=== PATIENT | female | born 1965 | race Caucasian/White ===

== ENCOUNTER → 2018-06-16 09:17 | Outpatient (CLI) | payer OTHER, SELFPAY | DX: Z23 Encounter for immunization (principal) | CPT/HCPCS: 90471; 90686 ==

== ENCOUNTER 2019-05-05 20:34 | Emergency (ER) | payer OTHER, SELFPAY ==
[2019-05-05] MEDS: SODIUM CHLORIDE 0.9% 1,000 ML 1000 ML IV (20:44)
[2019-05-05] MEDS: ONDANSETRON 4 MG/2 ML INJ IV ×2 (20:44→21:40)
[2019-05-05] MEDS: MORPHINE 4 MG/ML INJ IV (20:44)
[2019-05-05 20:45] LABS: Add Manual Diff / Slide Review NO; Basophils Absolute Auto 100 /uL (0-100); Eosinophils Absolute Auto 400 /uL (0-450); Eosinophils Percent Auto 3.4 % (2-4); Hematocrit 44.7 % (36-46); Hemoglobin 14.8 g/dL (12.0-16.0); Lymphocytes Absolute Auto 3000 /uL (1100-4500); Lymphocytes Percent Auto 26.3 % (25-40); Mean Corpuscular HGB Conc 33.1 % (30-36); Mean Corpuscular Volume 87.6 fL (80-100); Monocytes Absolute Auto 700 /uL (0-900); Monocytes Percent Auto 6.5 % (3-14); Neutrophils Absolute Auto 7100 /uL (1500-7000); Neutrophils Percent Auto 62.8 % (50-75); Platelet Count 293 X10^3/uL (150-400); Red Cell Distribution Width 14.2 % (11.6-14.8); White Blood Cell Count 11.3 X10^3/uL (4.5-11.0)
[2019-05-05] MEDS: KETOROLAC 60 MG/2 ML VIAL 30 MG IV (20:47)
[2019-05-05 20:49] VITALS: BP 224/94; PULSE 77; RESP 20; TEMP 37.7; O2SAT 96
[2019-05-05 20:56] LABS: Alanine Aminotransferase 61 IU/L (9-52); Albumin 4.6 g/dL (3.5-5.0); Albumin Globulin Ratio 1.4 (1.0-2.8); Alkaline Phosphatase 104 U/L (38-126); Aspartate Aminotransferase 35 IU/L (14-36); BUN Creatinine Ratio 23.3 (6-22); Bilirubin Total 0.8 mg/dL (0.2-1.3); Blood Urea Nitrogen 14 mg/dL (7-17); Calcium 9.5 mg/dL (8.4-10.2); Carbon Dioxide 30 mmol/L (22-32); Chloride 100 mmol/L (98-107); Estimated Glomerular Filt Rate > 60.0 mL/min (>60); Globulin 3.2 g/dL (1.7-4.1); Glucose 298 mg/dL (70-100); HEMOLYSIS < 15 (0-50); Potassium 3.8 mmol/L (3.4-5.1); Sodium 141 mmol/L (137-145); Total Protein 7.8 g/dL (6.3-8.2)
--- NOTE | 2019-05-05 20:57 | ED.GENADULT ---
HPI - General Adult General Chief complaint: Urogenital-Female Stated complaint: Kidney Stone Time Seen by Provider: 05/05/19 20:35 Source: patient Mode of arrival: Wheelchair Limitations: no limitations History of Present Illness HPI narrative: 53-year-old female here for evaluation of left sided abdominal pain. Patient states that her symptoms are consistent with prior episodes of kidney stones. States she has had multiple stones in the past. Some have required stent placement. Symptoms started earlier today. Has not tried anything for symptoms prior to arrival. States that her stones are calcium stones. Related Data Allergies Allergy/AdvReac Type Severity Reaction Status Date / Time latex Allergy Verified 05/05/19 20:49 Review of Systems Constitutional Constitutional: Denies fever(s) Cardiovascular Cardiovascular: Denies chest pain and Denies dyspnea Respiratory Respiratory: Denies dyspnea Gastrointestinal Gastrointestinal: Reports abdominal pain, Reports nausea and Reports vomiting Genitourinary Genitourinary: Reports difficulty voiding Musculoskeletal Musculoskeletal: Denies myalgias and Denies arthralgias Integumentary/Breasts Skin/Breast: Denies rash [facility] Medical History Kidney stones (Acute) Sarcoidosis (Acute) Social History marital status: lives independently: Yes Social History marital status: lives independently: Yes Exam Initial Vital Signs Initial Vital Signs: Vital Signs Temperature 99.8 F H 05/05/19 20:49 Pulse Rate 77 05/05/19 20:49 Respiratory Rate 20 05/05/19 20:49 Blood Pressure 224/94 H 05/05/19 20:49 Pulse Oximetry 96 05/05/19 20:49 Const General: cooperative and No comfortable (Uncomfortable) Orientation: alert and awake HENMT Head: normal to inspection and normocephalic Resp Effort & Inspection: normal respiratory effort Cardio Rate: regular rate Skin Lesions: no lesions Rashes: no rashes Neuro General: alert and awake Cognition: normal cognition Speech: speech normal Extrem General: normal to inspection Psych Appearance: grossly normal and well kempt Course Orders Ordered: ED Orders 05/05/19 20:30 Amylase Stat Complete Blood Count AUTO DIFF Stat Comprehensive Metabolic Panel Stat Lipase Stat 05/05/19 21:15 Urinalysis and Microscopic Stat Urine Culture Stat Discontinued Medications Sodium Chloride (Normal Saline 0.9%) 1,000 mls @ 1,000 mls/hr IV BOLUS ONE Stop: 05/05/19 21:35 Last Infusion: 05/05/19 21:55 Dose: 0 mls/hr Documented by: Admin: 05/05/19 20:44 Dose: 1,000 mls/hr Documented by: LUCÍA Lidocaine HCl 7.1 ml/ Sodium (Chloride) 57.1 mls @ 342.6 mls/hr IV NOW ONE Stop: 05/05/19 21:32 Last Infusion: 05/05/19 21:56 Dose: 0 mls/hr Documented by: Admin: 05/05/19 21:40 Dose: 342.6 mls/hr Documented by: LUCÍA Ketorolac Tromethamine (Toradol) 30 mg IV NOW ONE Stop: 05/05/19 20:37 Last Admin: 05/05/19 20:47 Dose: 30 mg Documented by: LUCÍA Ketorolac Tromethamine (Toradol) 30 mg IV NOW ONE Stop: 05/05/19 20:45 Last Admin: 05/05/19 20:56 Dose: Not Given Documented by: LUCÍA Morphine Sulfate (Morphine) 4 mg IV NOW ONE Stop: 05/05/19 20:37 Last Admin: 05/05/19 20:44 Dose: 4 mg Documented by: LUCÍA Ondansetron HCl (Zofran) 4 mg IV NOW ONE Stop: 05/05/19 20:37 Last Admin: 05/05/19 20:44 Dose: 4 mg Documented by: LUCÍA Ondansetron HCl (Zofran) 4 mg IV NOW ONE Stop: 05/05/19 21:37 Last Admin: 05/05/19 21:40 Dose: 4 mg Documented by: LUCÍA Oxycodone/Acetaminophen (Percocet 5/325) 1 tab PO NOW ONE Stop: 05/05/19 22:17 Last Admin: 05/05/19 22:24 Dose: 1 tab Documented by: LUCÍA Vital Signs Vital signs: Vital Signs - 8 hr 05/05/19 20:49 05/05/19 21:09 05/05/19 21:57 Temperature 99.8 F H Pulse Rate 77 71 76 Respiratory Rate 20 Blood Pressure 224/94 H Blood Pressure [Left Arm] 197/90 H Pulse Oximetry 96 97 95 05/05/19 22:51 Temperature Pulse Rate 81 Respiratory Rate 19 Blood Pressure Blood Pressure [Left Arm] 163/72 H Pulse Oximetry 98 Medical Decision Making Lab Data Lab results reviewed: Yes I reviewed the patient's lab results. Result diagrams: 05/05/19 20:30 05/05/19 20:30 Labs: Lab Results 05/05/19 05/05/19 05/05/19 Range/Units 20:30 20:30 20:30 WBC 11.3 H (4.5-11.0) X10^3/uL RBC 5.10 (4.0-5.2) X10^6/uL Hgb 14.8 (12.0-16.0) g/dL Hct 44.7 (36-46) % MCV 87.6 (80-100) fL MCH 29.0 (26-34) PG MCHC 33.1 (30-36) % RDW 14.2 (11.6-14.8) % Plt Count 293 (150-400) X10^3/uL Neut % (Auto) 62.8 (50-75) % Lymph % (Auto) 26.3 (25-40) % [place] % (Auto) 6.5 (3-14) % Eos % (Auto) 3.4 (2-4) % Baso % (Auto) 1.0 (0-2) % Neut # (Auto) 7100 H (3170-2221) /uL Lymph # (Auto) 3000 (7510-3476) /uL [place] # (Auto) 700 (0-900) /uL Eos # (Auto) 400 (0-450) /uL Baso # (Auto) 100 (0-100) /uL Sodium 141 (137-145) mmol/L Potassium 3.8 (3.4-5.1) mmol/L Chloride 100 (98-107) mmol/L Carbon Dioxide 30 (22-32) mmol/L BUN 14 (7-17) mg/dL Creatinine 0.60 (0.52-1.04) mg/dL Estimated GFR > 60.0 (>60) mL/min BUN/Creatinine Ratio 23.3 H (6-22) Glucose 298 H (70-100) mg/dL Calcium 9.5 (8.4-10.2) mg/dL Total Bilirubin 0.8 (0.2-1.3) mg/dL AST 35 (14-36) IU/L ALT 61 H (9-52) IU/L Alkaline Phosphatase 104 (38-126) U/L Total Protein 7.8 (6.3-8.2) g/dL Albumin 4.6 (3.5-5.0) g/dL Globulin 3.2 (1.7-4.1) g/dL Albumin/Globulin Ratio 1.4 (1.0-2.8) Amylase 63 (30-110) U/L Lipase 47 (23-300) U/L Urine Color Urine Appearance Urine pH (4.5-8.0) Ur Specific [place] (1.000-1.035) Urine Protein (Negative) Urine Glucose (UA) (Negative) g/dL Urine Ketones (NEGATIVE) Urine Occult Blood (Negative) Urine Nitrate (Negative) Urine Bilirubin (NEGATIVE) Urine Urobilinogen (0.2) E.U./dL Ur Leukocyte Esterase (NEGATIVE) Urine RBC (0-5/HPF) Urine WBC (0-5/HPF) Ur Squamous Epith Cells (0-5/HPF) Calcium Oxalate Crystal Urine Bacteria (None) Ur Culture Indicated? 05/05/19 Range/Units 21:15 WBC (4.5-11.0) X10^3/uL RBC (4.0-5.2) X10^6/uL Hgb (12.0-16.0) g/dL Hct (36-46) % MCV (80-100) fL MCH (26-34) PG MCHC (30-36) % RDW (11.6-14.8) % Plt Count (150-400) X10^3/uL Neut % (Auto) (50-75) % Lymph % (Auto) (25-40) % [place] % (Auto) (3-14) % Eos % (Auto) (2-4) % Baso % (Auto) (0-2) % Neut # (Auto) (7364-8340) /uL Lymph # (Auto) (3156-8769) /uL [place] # (Auto) (0-900) /uL Eos # (Auto) (0-450) /uL Baso # (Auto) (0-100) /uL Sodium (137-145) mmol/L Potassium (3.4-5.1) mmol/L Chloride (98-107) mmol/L Carbon Dioxide (22-32) mmol/L BUN (7-17) mg/dL Creatinine (0.52-1.04) mg/dL Estimated GFR (>60) mL/min BUN/Creatinine Ratio (6-22) Glucose (70-100) mg/dL Calcium (8.4-10.2) mg/dL Total Bilirubin (0.2-1.3) mg/dL AST (14-36) IU/L ALT (9-52) IU/L Alkaline Phosphatase (38-126) U/L Total Protein (6.3-8.2) g/dL Albumin (3.5-5.0) g/dL Globulin (1.7-4.1) g/dL Albumin/Globulin Ratio (1.0-2.8) Amylase (30-110) U/L Lipase (23-300) U/L Urine Color Dark yellow Urine Appearance Cloudy Urine pH 5.0 (4.5-8.0) Ur Specific [place] >=1.030 H (1.000-1.035) Urine Protein 2+ H (Negative) Urine Glucose (UA) 2+ H (Negative) g/dL Urine Ketones Trace H (NEGATIVE) Urine Occult Blood 3+ H (Negative) Urine Nitrate Negative (Negative) Urine Bilirubin Negative (NEGATIVE) Urine Urobilinogen 0.2 (0.2) E.U./dL Ur Leukocyte Esterase Trace H (NEGATIVE) Urine RBC 30-100/hpf H (0-5/HPF) Urine WBC 1-5/hpf (0-5/HPF) Ur Squamous Epith Cells 0-1 /hpf (0-5/HPF) Calcium Oxalate Crystal Occasional H Urine Bacteria Few (2-10) H (None) Ur Culture Indicated? Specimen cultured MDM Narrative Medical decision making narrative: Kidney functions unremarkable, urinalysis does not show any signs of infection. Her history and physical exam are consistent with a kidney stone. We did discuss the utility of a CT scan for location/size of the stone not necessarily for the diagnosis. We did discuss that this could be important given her prior need for stent placement. We also discussed the importance of trying to avoid CT scanning if necessary. We were able to get her pain under control with medications. After a discussion about CT scans we will hold on any CT scan for now. She has pain medication and nausea medication at home. She was given return precautions and follow-up instructions. She expressed understanding and agreement plan. Discharge Plan Departure Patient Disposition: Home Clinical Impression: Renal colic on left side Discharge Date/Time: 05/05/19 22:57 Instructions: DI for Kidney Stones Activity Restrictions/Additional Instructions: Take the pain medication and nausea medication as needed. If you develop new symptoms to include fevers, inability to tolerate oral intake, worsening pain, inability to urinate please return to the emergency department for further evaluation. Contact your primary provider for a follow-up. Referrals: Akbar Ryan MD [Primary Care Provider] -
[2019-05-05 21:05] LABS: Amylase 63 U/L (30-110); Lipase 47 U/L (23-300)
[2019-05-05 21:09] VITALS: BP 197/90; PULSE 71; O2SAT 97
[2019-05-05 21:30] LABS: Appearance Urine UA CLOUDY; Bilirubin Urine UA NEGATIVE (NEGATIVE); Glucose Urine UA 2+ g/dL (Negative); Ketones Urine UA TRACE (NEGATIVE); Leukocyte Esterase Urine UA TRACE (NEGATIVE); Nitrite Urine UA NEGATIVE (Negative); Occult Blood Urine UA 3+ (Negative); Protein Urine UA 2+ (Negative); Specific Gravity Urine UA >=1.030 (1.000-1.035); Urobilinogen Urine UA 0.2 E.U./dL (0.2)
[2019-05-05 21:31] LABS: Color Urine UA Dark Yellow
[2019-05-05 21:34] LABS: Calcium Oxalate Crystals Urine Occasional; RBC Urine 30-100/HPF (0-5/HPF); Squamous Epithelial Cell Urine 0-1 /HPF (0-5/HPF); WBC Urine 1-5/HPF (0-5/HPF)
[2019-05-05 21:35] LABS: Bacteria Urine Few (2-10); Culture Indicated Urine Specimen Cultured
[2019-05-05] MEDS: LIDOCAINE 2% 7.1 ML in SODIUM CHLORIDE 0.9% 50 ML 342.6 ML IV (21:40)
[2019-05-05 21:57] VITALS: PULSE 76; O2SAT 95
[2019-05-05] MEDS: OXYCODONE/ACETAMINOPHEN 5/325 TABLET 1 TAB PO (22:24)
[2019-05-05 22:51] VITALS: BP 163/72; PULSE 81; RESP 19; O2SAT 98
== END 2019-05-05 22:57 | disposition home or self-care (01) ==
PROVIDERS: Nurse Practitioner Family; Emergency Provider Emergency Medicine; PCP Family Medicine
DX: N23 Unspecified renal colic (principal); Z87.442 Personal history of urinary calculi
CPT/HCPCS: 36415; 80053; 81001; 82150; 83690; 85025; 87086; 96361; 96365; 96375; 96376; 99283; 99284; J1885; J2270; J2405

== ENCOUNTER → 2019-07-16 11:35 | Outpatient (CLI) | payer OTHER, SELFPAY | PROVIDERS: PCP Family Medicine | DX: Z23 Encounter for immunization (principal) | CPT/HCPCS: 90471; 90686 ==

== ENCOUNTER → 2020-07-07 | Outpatient (CLI) | payer OTHER, SELFPAY | PROVIDERS: PCP Family Medicine; Referring Provider Internal Medicine; Visit Provider Internal Medicine | DX: Z23 Encounter for immunization (principal) | CPT/HCPCS: 90471; 90686 ==

== ENCOUNTER → 2020-07-21 15:34 | Outpatient (CLI) | payer OTHER, SELFPAY ==
[2020-07-21 16:47] LABS: COVID19 -Nasal RAPID Negative (Negative)
== END ==
PROVIDERS: PCP Family Medicine; Visit Provider Nurse Practitioner
DX: M79.10 Myalgia, unspecified site (principal); R11.0 Nausea; Z20.828 Contact with and (suspected) exposure to other viral communicable diseases
CPT/HCPCS: 87635

== ENCOUNTER 2020-12-27 20:25 | Emergency (ER) | payer OTHER, SELFPAY ==
[2020-12-27 20:27] VITALS: BP 246/112; PULSE 80; RESP 17; TEMP 37.5; O2SAT 97; BMI 32.3
--- NOTE | 2020-12-27 20:49 | ED_ITS ---
HPI - Abdominal Pain General Chief Complaint: Urogenital-Female Stated Complaint: Thinks she has a kidney stone Time Seen by Provider: 12/27/20 20:46 Source: patient Mode of arrival: Ambulatory Limitations: no limitations History of Present Illness HPI narrative: Patient is a 55-year-old female history of diabetes, kidney stone and sarcoidosis presenting with sudden onset of right flank pain radiating around to her groin. It came on suddenly while at work this feels like prior kidney stones. She feels nauseous. She has previously required lithotripsy. No fever or chills. MD complaint: flank pain Onset (ago): hour(s) Pain Consistency: constant Location: R flank Quality: stabbing and sharp Relieving factors: nothing Exacerbating factors: nothing Related Data Allergies Allergy/AdvReac Type Severity Reaction Status Date / Time latex Allergy Verified 12/27/20 20:38 Review of Systems Review of Systems Narrative: GENERAL: Denies chills, fatigue, malaise, fever, sweats, travel HEENT: Denies sinus pain, ear pain, sore throat, difficulty swallowing, neck pain RESPIRATORY: Denies dyspnea, cough, wheezing, hemoptysis, sputum. CARDIOVASCULAR: Denies chest pain, palpitations, orthopnea, edema GASTROINTESTINAL: Denies nausea, vomiting, abdominal pain, diarrhea, constipation, melena. : See HPI MUSCULOSKELETAL: Denies weakness, joint pain, or bony pain SKIN: No rash, no erythema, no pruritus NEUROLOGIC: Denies weakness, dizziness, headache, numbness, change in speech, confusion PSYCHIATRIC: No concerning psychosocial issues. 12 point review of systems is negative except for those stated above and HPI Patient History Medical History Diabetes Kidney stones Sarcoidosis Social History marital status: lives independently: Yes Exam Initial Vital Signs Initial Vital Signs: Vital Signs Temperature 99.5 F 12/27/20 20:27 Pulse Rate 80 12/27/20 20:27 Respiratory Rate 17 12/27/20 20:27 Blood Pressure 246/112 H 12/27/20 20:27 Pulse Oximetry 97 12/27/20 20:27 GENERAL: Appears in pain and in no acute distress. HEENT: Head atraumatic,EOMI, pupils reactive, face symmetric, moist mucous membranes CARDIOVASCULAR: Regular rate and rhythm without murmurs, rubs or gallops. RESPIRATORY: Breath sounds equal bilaterally, no wheezes rales or rhonchi. ABDOMEN: Soft, nontender. Normoactive bowel sounds all 4 quadrants. No guarding or rebound. : Right CVA tenderness EXTREMITIES: Normal range of motion, no clubbing or edema. Neurovascularly intact NEUROLOGICAL: Alert and oriented x4.Normal gait and speech. SKIN: Warm, dry, no laceration, no petechiae, no rashes or lesions. Course Orders Ordered: ED Orders 12/27/20 20:30 Complete Blood Count AUTO DIFF Stat Comprehensive Metabolic Panel Stat Lipase Stat 12/27/20 21:02 CT kidney ureter bladder (KUB) Stat 12/28/20 00:06 EKG-12 Lead Stat 12/28/20 01:15 COVID19 -Nasal swab/Pre-Proc Stat Discontinued Medications Adenosine (Adenosine 6 Mg/2 Ml Vial) 6 mg IV NOW ONE Stop: 12/28/20 00:09 Last Admin: 12/28/20 01:14 Dose: Not Given Documented by: EJ Adenosine (Adenosine 6 Mg/2 Ml Vial) 12 mg IV NOW ONE Stop: 12/28/20 00:09 Last Admin: 12/28/20 01:14 Dose: Not Given Documented by: EJ Diltiazem HCl (Diltiazem 5 Mg/Ml Sdv) 10 mg IV NOW ONE Stop: 12/28/20 00:16 Last Admin: 12/28/20 00:18 Dose: 10 mg Documented by: PRISCILAAG Diltiazem HCl (Diltiazem 5 Mg/Ml Sdv) 10 mg IV NOW ONE Stop: 12/28/20 00:29 Last Admin: 12/28/20 00:31 Dose: 10 mg Documented by: EJ Hydromorphone HCl (Hydromorphone 0.5 Mg Inj) 0.5 mg IV NOW ONE Stop: 12/27/20 21:18 Last Admin: 12/27/20 21:30 Dose: 0.5 mg Documented by: PRISCILAAG Hydromorphone HCl (Hydromorphone 0.5 Mg Inj) 0.5 mg IV NOW ONE Stop: 12/27/20 21:46 Last Admin: 12/27/20 21:48 Dose: 0.5 mg Documented by: EJ Hydromorphone HCl (Hydromorphone 1 Mg Inj) 1 mg IV NOW ONE Stop: 12/27/20 23:28 Last Admin: 12/27/20 23:31 Dose: 1 mg Documented by: EJ Hydromorphone HCl (Hydromorphone 0.5 Mg Inj) 0.5 mg IV NOW ONE Stop: 12/28/20 01:21 Last Admin: 12/28/20 01:28 Dose: 0.5 mg Documented by: EJ Sodium Chloride (Normal Saline 0.9%) 1,000 mls @ 1,000 mls/hr IV BOLUS ONE Stop: 12/27/20 22:56 Last Infusion: 12/28/20 00:06 Dose: 0 mls/hr Documented by: Admin: 12/27/20 22:08 Dose: 1,000 mls/hr Documented by: EJ Lidocaine HCl 6.8 ml/ Sodium (Chloride) 56.8 mls @ 340.8 mls/hr IV NOW ONE Stop: 12/27/20 23:39 Last Infusion: 12/28/20 00:06 Dose: 0 mls/hr Documented by: Admin: 12/27/20 23:43 Dose: 340.8 mls/hr Documented by: EJ Diltiazem HCl 125 mg/ Sodium (Chloride) 125 mls @ 5 mls/hr IV TITRATE MODESTA; Protocol Last Titration: 12/28/20 03:28 Dose: 0 mg/hr, 0 mls/hr Documented by: Titration: 12/28/20 02:26 Dose: 0 mg/hr, 0 mls/hr Documented by: Titration: 12/28/20 01:56 Dose: 15 mg/hr, 15 mls/hr Documented by: Titration: 12/28/20 01:28 Dose: 10 mg/hr, 10 mls/hr Documented by: Admin: 12/28/20 01:02 Dose: 5 mg/hr, 5 mls/hr Documented by: EJ Diltiazem HCl 125 mg/ Sodium (Chloride) 125 mls @ 5 mls/hr IV TITRATE MODESTA; Protocol Last Admin: 12/28/20 01:15 Dose: Not Given Documented by: EJ Ketorolac Tromethamine (Ketorolac 30 Mg/Ml Vial) 30 mg IV NOW ONE Stop: 12/27/20 20:47 Last Admin: 12/27/20 20:54 Dose: 30 mg Documented by: EJ Metoprolol Tartrate (Metoprolol Tartrate 5 Mg/5 Ml Inj) 5 mg IV NOW ONE Stop: 12/28/20 02:40 Last Admin: 12/28/20 02:42 Dose: 5 mg Documented by: EJ Ondansetron HCl (Ondansetron 4 Mg/2 Ml Inj) 4 mg IV NOW ONE Stop: 12/27/20 20:47 Last Admin: 12/27/20 20:54 Dose: 4 mg Documented by: EJ Ondansetron HCl (Ondansetron 4 Mg/2 Ml Inj) 4 mg IV NOW ONE Stop: 12/27/20 21:27 Last Admin: 12/27/20 21:30 Dose: 4 mg Documented by: EJ Vital Signs Vital signs: Vital Signs - 8 hr 12/27/20 20:27 12/27/20 23:54 12/28/20 00:00 Temperature 99.5 F Pulse Rate 80 101 H 101 H Respiratory Rate 17 18 21 Blood Pressure 246/112 H 154/71 H 174/80 H Pulse Oximetry 97 96 91 12/28/20 00:05 12/28/20 00:10 12/28/20 00:15 Temperature Pulse Rate 154 H 154 H 154 H Respiratory Rate 14 20 19 Blood Pressure 172/95 H 178/101 H 178/96 H Pulse Oximetry 94 95 94 12/28/20 00:20 12/28/20 00:25 12/28/20 00:30 Temperature Pulse Rate 148 H 161 H 129 H Respiratory Rate 16 22 15 Blood Pressure 130/65 145/84 H Pulse Oximetry 96 93 95 12/28/20 00:35 12/28/20 00:45 12/28/20 00:50 Temperature Pulse Rate 148 H 149 H 148 H Respiratory Rate 25 H 12 20 Blood Pressure 110/68 131/94 H 144/99 H Pulse Oximetry 93 94 94 12/28/20 00:55 12/28/20 01:00 12/28/20 01:05 Temperature Pulse Rate 144 H 140 H 146 H Respiratory Rate 18 19 14 Blood Pressure 145/86 H 158/89 H 140/69 Pulse Oximetry 96 91 92 12/28/20 01:10 12/28/20 01:15 12/28/20 01:20 Temperature Pulse Rate 141 H 149 H 140 H Respiratory Rate 20 21 18 Blood Pressure 143/65 H 142/87 H 164/96 H Pulse Oximetry 90 L 93 93 12/28/20 01:25 12/28/20 01:30 12/28/20 01:35 Temperature Pulse Rate 145 H 145 H 137 H Respiratory Rate 18 15 Blood Pressure 144/61 H 118/60 149/69 H Pulse Oximetry 90 L 92 93 12/28/20 01:41 12/28/20 02:08 12/28/20 02:15 Temperature Pulse Rate 145 H 146 H 132 H Respiratory Rate 12 Blood Pressure 152/59 H 96/59 L 91/50 L Pulse Oximetry 93 91 88 L 12/28/20 02:18 12/28/20 02:30 12/28/20 02:45 Temperature Pulse Rate 129 H 132 H 100 H Respiratory Rate 17 24 Blood Pressure 92/54 L 113/58 L 118/84 Pulse Oximetry 94 92 94 12/28/20 03:00 12/28/20 03:15 Temperature Pulse Rate 101 H 96 H Respiratory Rate 10 L 18 Blood Pressure 142/66 H 150/77 H Pulse Oximetry 92 94 MDM - Abdominal Pain Lab Data Attestation: I reviewed the patient's lab results. Result diagrams: 12/27/20 20:30 12/27/20 20:30 Labs: Lab Results 12/27/20 12/27/20 12/28/20 Range/Units 20:30 20:30 01:15 WBC 11.2 H (4.5-11.0) X10^3/uL RBC 5.28 H (4.0-5.2) X10^6/uL Hgb 14.2 (12.0-16.0) g/dL Hct 43.8 (36-46) % MCV 82.8 (80-100) fL MCH 26.9 (26-34) PG MCHC 32.5 (30-36) % RDW 14.1 (11.6-14.8) % Plt Count 292 (150-400) X10^3/uL Neut % (Auto) 61.8 (50-75) % Lymph % (Auto) 28.2 (25-40) % Patrick % (Auto) 6.5 (3-14) % Eos % (Auto) 2.6 (2-4) % Baso % (Auto) 0.9 (0-2) % Neut # (Auto) 6900 (9816-1563) /uL Lymph # (Auto) 3200 (8544-3963) /uL Patrick # (Auto) 700 (0-900) /uL Eos # (Auto) 300 (0-450) /uL Baso # (Auto) 100 (0-100) /uL Sodium 142 (137-145) mmol/L Potassium 3.5 (3.4-5.1) mmol/L Chloride 104 (98-107) mmol/L Carbon Dioxide 29 (22-32) mmol/L BUN 15 (7-17) mg/dL Creatinine 0.69 (0.52-1.04) mg/dL Estimated GFR > 60.0 (>60) mL/min BUN/Creatinine Ratio 21.7 (6-22) Glucose 126 H (70-100) mg/dL Calcium 9.6 (8.4-10.2) mg/dL Total Bilirubin 0.8 (0.2-1.3) mg/dL AST 25 (14-36) IU/L ALT 36 H (<35) IU/L Alkaline Phosphatase 120 (38-126) U/L Total Protein 8.2 (6.3-8.2) g/dL Albumin 4.5 (3.5-5.0) g/dL Globulin 3.7 (1.7-4.1) g/dL Albumin/Globulin Ratio 1.2 (1.0-2.8) Lipase 31 (23-300) U/L SARS-CoV-2 (PCR) Negative (Negative) Point of care testing: Point of Care Testing Glucose POC 102 Urine Dip Bedside Urine Glucose Negative Bedside Urine Bilirubin - Negative Bedside Urine Ketone - Negative Urine Specific [place] 1.025 Bedside Urine Occult Blood +++ Bedside Urine pH 6.5 Bedside Urine Protein + 30 Bedside Urine Urobilinogen +/- 1mg Bedside Urine Nitrite - Negative Bedside Urine Leukocytes - Negative Esterase Imaging Data CT scan - abdomen/pelvis: Radiologist's Impression: PROCEDURE: CT KIDNEY URETER BLADDER (KUB) INDICATIONS: right flank pain TECHNIQUE: Noncontrast 5 mm thick sections acquired from the diaphragms to the symphysis. 5 mm thick coronal and sagittal reformats were then performed. For radiation dose reduction, the following was used: automated exposure control, adjustment of mA and/or kV according to patient size. COMPARISON: [facility], CT, CT KUB, 05/11/2019, 16:55. FINDINGS: Image quality: Excellent. Lung bases: Lung bases are clear. Heart size is normal. Urinary system: Both kidneys are normal in size. 8 millimeter stone noted in the right UPJ causing severe right-sided hydronephrosis. 6 millimeter in 2 millimeter nonobstructing stones noted in the lower pole the right kidney. No left-sided renal stones. Bladder wall thickness is normal; no calcified bladder stones. Other solid organs: Liver is normal in size. Liver has nodular margins suggesting hepatic cirrhosis. Gallbladder is surgically absent. Pancreas is normal in contours. Spleen is normal in size. No adrenal nodules. Peritoneum and bowel: Unenhanced bowel loops demonstrate normal wall thickness and caliber. No free fluid or air. The appendix is normal. Nodes and vessels: No retroperitoneal or mesenteric adenopathy by size criteria. Aorta and inferior vena cava are normal in caliber. Scattered atherosclerotic calcifications involving the abdominal and pelvic vasculature. Abdominal wall: No ventral hernias. Pelvis: No free pelvic fluid. No inguinal hernias or adenopathy. Bones: No suspicious bony lesions. No vertebral body compression fractures. Spine degenerative disc disease and facet arthropathy. IMPRESSION: 1. 8 millimeter right UPJ stone causing severe right-sided hydronephrosis. Right UPJ stone has density measurements of 698 Hounsfield units. 2. 6 millimeter and 2 millimeter nonobstructing right renal stones. 3. Cirrhotic appearing liver. Dictated by: Nubia Giordano MD, PhD on 12/27/2020 at 21:32 Approved by: Nubia Giordano MD, PhD on 12/27/2020 at 21:36 ECG Data Attestation: I personally reviewed and interpreted this ECG as follows: Prior ECG tracings: not available for review Interpretation: Atrial fibrillation with RVR rate 143 with right bundle raymond block noted MDM Narrative Medical decision making narrative: Patient is requiring multiple doses of pain medications including Toradol and Dilaudid. Lidocaine drip is also given. Urology Dr. Gomez at [facility] commercial litigation attorney updated on patient's CT results including severe hydronephrosis no renal failure states outpatient follow-up is appropriate in november follow-up with see [facility] kidney stone clinic. Agrees with Flomax at discharge. Urine is still pending at this time As soon as the lidocaine drip stopped she went into AFib with RVR. Initially it looked like possibly SVT on the monitor however EKG confirmed AFib with RVR. Patient states that she does actually have a history of paroxysmal atrial fibrillation she feels fluttering in her chest. We discussed cardioversion and rate control at this time patient is opting not for cardioversion. She states she usually gets put on the diltiazem drip and then she self converts Initially she responded to pushes of diltiazem which at least decreased her heart rate into the 120s she is placed on diltiazem drip heart rate did not respond. Diltiazem drip was increased to 15 and her blood pressure decreased into the 90s she remains in AFib with RVR. We do not have Urology available over the weekend at [facility]. Patient and requiring multiple doses of pain medication, and now in atrial fibrillation with RVR on diltiazem drip. Patient's heart rate is really did not decrease significantly rate remains in the 130s. Blood pressure begins to drop and she is no longer tolerating diltiazem. Diltiazem drip is stopped and she is given 1 dose of metoprolol which actually does seem to help. Patient remained asymptomatic. 0200 Dr. Arana, hospitalist updated on patient's symptoms test results request I speak with Urology before he accepts 0205 Dr. Claudio-urology updated patient's symptoms test results recommends keeping patient NPO multi patient once transferred Critical Care Time Critical Care Time Critical Care Time: Yes Total Critical Care Time: 30 Attestation: The high probability of a clinically significant, sudden or life threatening deterioration of the [cardiovascular] system(s) required my full and direct attention, intervention and personal management. The aggregate critical care time was 30 minutes. This time is in addition to time spent performing reported procedures but includes the following: [x] Data Review and interpretation [x] Patient assessment and monitoring of vital signs [x] Documentation [x] Medication orders and management Discharge Plan Departure Patient Disposition: [facility] Clinical Impression: Atrial fibrillation with rapid ventricular response, Kidney stones Referrals: Ploudre,Akbar, MD [Primary Care Provider] -
[2020-12-27 20:53] LABS: Add Manual Diff / Slide Review NO; Basophils Absolute Auto 100 /uL (0-100); Basophils Percent Auto 0.9 % (0-2); Eosinophils Absolute Auto 300 /uL (0-450); Eosinophils Percent Auto 2.6 % (2-4); Hematocrit 43.8 % (36-46); Hemoglobin 14.2 g/dL (12.0-16.0); Lymphocytes Absolute Auto 3200 /uL (1100-4500); Lymphocytes Percent Auto 28.2 % (25-40); Mean Corpuscular HGB Conc 32.5 % (30-36); Mean Corpuscular Hemoglobin 26.9 PG (26-34); Mean Corpuscular Volume 82.8 fL (80-100); Monocytes Absolute Auto 700 /uL (0-900); Monocytes Percent Auto 6.5 % (3-14); Neutrophils Absolute Auto 6900 /uL (1500-7000); Neutrophils Percent Auto 61.8 % (50-75); Platelet Count 292 X10^3/uL (150-400); Red Blood Cell Count 5.28 X10^6/uL (4.0-5.2); Red Cell Distribution Width 14.1 % (11.6-14.8); White Blood Cell Count 11.2 X10^3/uL (4.5-11.0)
[2020-12-27] MEDS: KETOROLAC 30 MG/ML VIAL IV (20:54)
[2020-12-27] MEDS: ONDANSETRON 4 MG/2 ML INJ IV ×2 (20:54→21:30)
[2020-12-27 20:58] LABS: Alanine Aminotransferase 36 IU/L (<35); Albumin 4.5 g/dL (3.5-5.0); Albumin Globulin Ratio 1.2 (1.0-2.8); Alkaline Phosphatase 120 U/L (38-126); Aspartate Aminotransferase 25 IU/L (14-36); BUN Creatinine Ratio 21.7 (6-22); Bilirubin Total 0.8 mg/dL (0.2-1.3); Blood Urea Nitrogen 15 mg/dL (7-17); Calcium 9.6 mg/dL (8.4-10.2); Carbon Dioxide 29 mmol/L (22-32); Chloride 104 mmol/L (98-107); Estimated Glomerular Filt Rate > 60.0 mL/min (>60); Globulin 3.7 g/dL (1.7-4.1); Glucose 126 mg/dL (70-100); HEMOLYSIS < 15 (0-50); Lipase 31 U/L (23-300); Potassium 3.5 mmol/L (3.4-5.1); Sodium 142 mmol/L (137-145); Total Protein 8.2 g/dL (6.3-8.2)
--- NOTE | 2020-12-27 21:02 | DI.CT.S_ITS ---
PROCEDURE: CT KIDNEY URETER BLADDER (KUB) INDICATIONS: right flank pain TECHNIQUE: Noncontrast 5 mm thick sections acquired from the diaphragms to the symphysis. 5 mm thick coronal and sagittal reformats were then performed. For radiation dose reduction, the following was used: automated exposure control, adjustment of mA and/or kV according to patient size. COMPARISON: [facility], CT, CT KUB, 05/11/2019, 16:55. FINDINGS: Image quality: Excellent. Lung bases: Lung bases are clear. Heart size is normal. Urinary system: Both kidneys are normal in size. 8 millimeter stone noted in the right UPJ causing severe right-sided hydronephrosis. 6 millimeter in 2 millimeter nonobstructing stones noted in the lower pole the right kidney. No left-sided renal stones. Bladder wall thickness is normal; no calcified bladder stones. Other solid organs: Liver is normal in size. Liver has nodular margins suggesting hepatic cirrhosis. Gallbladder is surgically absent. Pancreas is normal in contours. Spleen is normal in size. No adrenal nodules. Peritoneum and bowel: Unenhanced bowel loops demonstrate normal wall thickness and caliber. No free fluid or air. The appendix is normal. Nodes and vessels: No retroperitoneal or mesenteric adenopathy by size criteria. Aorta and inferior vena cava are normal in caliber. Scattered atherosclerotic calcifications involving the abdominal and pelvic vasculature. Abdominal wall: No ventral hernias. Pelvis: No free pelvic fluid. No inguinal hernias or adenopathy. Bones: No suspicious bony lesions. No vertebral body compression fractures. Spine degenerative disc disease and facet arthropathy. IMPRESSION: 1. 8 millimeter right UPJ stone causing severe right-sided hydronephrosis. Right UPJ stone has density measurements of 698 Hounsfield units. 2. 6 millimeter and 2 millimeter nonobstructing right renal stones. 3. Cirrhotic appearing liver. Dictated by: Nubia Giordano MD, PhD on 12/27/2020 at 21:32 Approved by: Nubia Giordano MD, PhD on 12/27/2020 at 21:36
[2020-12-27] MEDS: HYDROMORPHONE 0.5 MG INJ IV ×2 (21:30→21:48)
[2020-12-27] MEDS: SODIUM CHLORIDE 0.9% 1,000 ML 1000 ML IV (22:08)
[2020-12-27] MEDS: HYDROMORPHONE 1 MG INJ IV (23:31)
[2020-12-27] MEDS: LIDOCAINE 2% 6.8 ML in SODIUM CHLORIDE 0.9% 50 ML 340.8 ML IV (23:43)
[2020-12-27 23:54] VITALS: BP 154/71; PULSE 101; RESP 18; O2SAT 96
[2020-12-28] VITALS (27 sets, daily range): BP systolic 91–178; BP diastolic 50–101; PULSE 96–161; RESP 10–25; O2SAT 88–96
--- NOTE | 2020-12-28 00:05 | PC.NURSE ---
As soon as lidocaine gtt finished patients HR appears to have jumped into Afib RVR at 155; Reports some SOB. Dr Garcia called to bedside. EKG being obtained. Pt has hx of SVT/afib
[2020-12-28] MEDS: dilTIAZem 5 MG/ML SDV 10 MG IV ×2 (00:18→00:31)
[2020-12-28] MEDS: dilTIAZem 125 MG in SODIUM CHLORIDE 0.9% 100 ML IV (01:02)
[2020-12-28] MEDS: HYDROMORPHONE 0.5 MG INJ IV (01:28)
[2020-12-28 01:56] LABS: COVID19 -Nasal RAPID Negative (Negative)
[2020-12-28] MEDS: METOPROLOL TARTRATE 5 MG/5 ML INJ IV (02:42)
== END 2020-12-28 03:40 | disposition short-term general hospital (02) ==
PROVIDERS: Emergency Provider Emergency Medicine; PCP Family Medicine
DX: I48.20 Chronic atrial fibrillation, unspecified (principal); N20.0 Calculus of kidney; Z87.442 Personal history of urinary calculi; R11.0 Nausea; Z20.822 Contact with and (suspected) exposure to COVID-19
CPT/HCPCS: 36415; 74176; 80053; 81003; 82962; 83690; 85025; 87635; 93005; 96361; 96365; 96367; 96375; 96376; 99285; 99291; 99292; C9803; J1170; J1885; J2405

== ENCOUNTER → 2021-04-03 12:38 | Outpatient (CLI) | payer OTHER, SELFPAY ==
[2021-04-03 13:00] LABS: COVID19 -Nasal RAPID Negative (Negative)
== END ==
PROVIDERS: PCP Family Medicine; Referring Provider Nurse Practitioner; Visit Provider Nurse Practitioner
DX: R09.81 Nasal congestion (principal); Z20.822 Contact with and (suspected) exposure to COVID-19; R51.9 Headache, unspecified
CPT/HCPCS: 87635

== ENCOUNTER → 2023-07-30 08:52 | Outpatient (CLI) | payer OTHER, SELFPAY | PROVIDERS: PCP Family Medicine; Referring Provider Family Medicine; Visit Provider Family Medicine | DX: Z23 Encounter for immunization (principal) | CPT/HCPCS: 90471; 90686 ==